=== PATIENT | female | born 1995 | race Two or more races ===

== ENCOUNTER 2023-09-24 16:38 | Emergency (ER) | payer MEDICAID, OTHER ==
[~2023-09-24] VITALS: Ht 160 cm; Wt 65.0 kg
[2023-09-24 22:35] VITALS: TEMP 98.2
[2023-09-24] MEDS ORDERED: PROPOFOL 100 ML IV ONE (22:44)
[2023-09-24] MEDS ORDERED: PROPOFOL 10 MG/ML 20 ML IV ONE (22:45)
[2023-09-25 00:30] VITALS: BP 125/56; PULSE 73; RESP 26; O2SAT 96
== END 2023-09-25 01:07 | disposition home or self-care (01) ==
LOC: EDBD 16:38 → ER 16:38
DX: S43.004A Unspecified dislocation of right shoulder joint, initial encounter (principal); X50.1XXA Overexertion from prolonged static or awkward postures, initial encounter; Y93.89 Activity, other specified; Y92.89 Other specified places as the place of occurrence of the external cause; Y99.8 Other external cause status
CPT/HCPCS: 23650; 73020; 73030; 99152; 99285; J2704